=== PATIENT | female | born 1955 | race Caucasian/White ===

== ENCOUNTER 2017-02-03 10:04 | Outpatient (CLI) | payer OTHER ==
[2015-10-08 21:49] VITALS: BMI 23.7
--- NOTE | 2017-02-04 11:06 | MAMMO ---
EXAM: Bilateral digital screening mammogram History: Screening Comparison: Bilateral mammogram 04/22/2014 Findings: MLO and CC views of bilateral breasts demonstrate scattered fibroglandular breast parench yma. Stable benign bilateral breast calcifications. There are no dominant masses, no suspicious mi crocalcifications and no architectural distortions Impression: Benign stable mammogram. Recommend followup routine screening mammography in 1 year. BIRADS 2
== END 2017-02-03 10:05 | disposition home or self-care (01) ==
LOC: RAD 10:04
PROVIDERS: ATTEND Nurse Practitioner Family
DX: Z12.31 Encounter for screening mammogram for malignant neoplasm of breast (principal)
CPT/HCPCS: 77067

== ENCOUNTER 2018-06-26 11:44 | Outpatient (CLI) | payer OTHER ==
[2015-10-08 21:49] VITALS: BMI 23.7
--- NOTE | 2018-06-26 12:37 | DI ---
EXAM: Left humerus two views HISTORY: Fall. FINDINGS: Comparison is to 10/08/2015 shoulder radiography. No comparison. Humeral imaging. There is deformity of the humeral neck consistent with a healed fracture seen as acute on the prior s tudy. There is a newly developed fracture of the upper third of the humeral diaphysis which has an e xuberant amount of surrounding osseous density within the soft tissues suggesting callus formation. No definite acute fracture is seen. IMPRESSION: 1. Humeral diaphyseal fracture which appears to be healing. No definite acute fracture is seen. Le ss likely would this represent a pathologic process such as bone neoplasia. No prior imaging of the region was available. Correlate with patient history.
== END 2018-06-26 11:45 | disposition home or self-care (01) ==
LOC: RHC-LAB 11:44
PROVIDERS: ATTEND Nurse Practitioner Family
DX: M79.622 Pain in left upper arm (principal); W19.XXXA Unspecified fall, initial encounter; Z79.899 Other long term (current) drug therapy; Z72.0 Tobacco use
CPT/HCPCS: 36415; 80053; 80061; 84443; 85025